=== PATIENT | female | born 1985 | race Caucasian/White ===

== ENCOUNTER 2021-01-04 19:29 | Emergency (ER) | payer OTHER, MEDICAID ==
[~2021-01-04] VITALS: Ht 168.9 cm; Wt 95.2 kg
--- NOTE | 2021-01-04 19:47 | ED Abdominal Pain ---
General Stated Complaint: PAIN UNDER RIGHT RIBS Source of Information: Patient Exam Limitations: No Limitations History of Present Illness Date Seen by Provider: January 04, 2021 Time Seen by Provider: 19:45 Initial Comments Left upper quadrant abdominal pain for 3 to 4 days. She is moving into a new house and initially thought she may have just pulled a muscle but this pain is worsened by coughing and deep breathing laughing and moving. She is not short of breath and does not have a cough but when she forces herself to cough that does make the pain worse. No fevers or chills. No fall or injury. Timing/Duration: 1-2 Days Severity/Quality: Cramping Radiation: No Radiation Activities at Onset: None Associated Symptoms: Nausea/Vomiting Allergies and Home Medications Allergies Coded Allergies: Sulfa (Sulfonamide Antibiotics) (Verified Allergy, Unknown, 01/04/21) Patient Home Medication List Home Medication List Reviewed: Yes Review of Systems Review of Systems Constitutional: see HPI EENTM: No Symptoms Reported Respiratory: No Symptoms Reported Cardiovascular: See HPI Gastrointestinal: See HPI, Abdominal Pain Genitourinary: No Symptoms Reported Musculoskeletal: no symptoms reported Skin: no symptoms reported Psychiatric/Neurological: No Symptoms Reported Endocrine: No Symptoms Reported Hematologic/Lymphatic: No Symptoms Reported Physical Exam Vital Signs Capillary Refill : Height/Weight/BMI Height: '" Weight: lbs. oz. kg; BMI Method: General Appearance: WD/WN, no apparent distress HEENT: PERRL/EOMI, normal ENT inspection Neck: non-tender, full range of motion Respiratory: no respiratory distress, no accessory muscle use Gastrointestinal: normal bowel sounds, soft, tenderness (Tender to palpation left upper quadrant) Extremities: normal range of motion, non-tender Neurologic/Psychiatric: alert, normal mood/affect, oriented x 3 Skin: normal color, warm/dry Progress/Results/Core Measures Results/Orders Lab Results Laboratory Tests Test 01/04/21 19:50 Range/Units White Blood Count 11.7 H 4.3-11.0 10^3/uL Red Blood Count 4.28 3.80-5.11 10^6/uL Hemoglobin 13.0 11.5-16.0 g/dL Hematocrit 38 35-52 % Mean Corpuscular Volume 90 80-99 fL Mean Corpuscular Hemoglobin 30 25-34 pg Mean Corpuscular Hemoglobin Concent 34 32-36 g/dL Red Cell Distribution Width 12.9 10.0-14.5 % Platelet Count 337 130-400 10^3/uL Mean Platelet Volume 9.6 9.0-12.2 fL Immature Granulocyte % (Auto) 1 % Neutrophils (%) (Auto) 70 42-75 % Lymphocytes (%) (Auto) 21 12-44 % Monocytes (%) (Auto) 6 0-12 % Eosinophils (%) (Auto) 2 0-10 % Basophils (%) (Auto) 1 0-10 % Neutrophils # (Auto) 8.2 H 1.8-7.8 10^3/uL Lymphocytes # (Auto) 2.5 1.0-4.0 10^3/uL Monocytes # (Auto) 0.7 0.0-1.0 10^3/uL Eosinophils # (Auto) 0.2 0.0-0.3 10^3/uL Basophils # (Auto) 0.1 0.0-0.1 10^3/uL Immature Granulocyte # (Auto) 0.1 0.0-0.1 10^3/uL Sodium Level 137 135-145 MMOL/L Potassium Level 3.7 3.6-5.0 MMOL/L Chloride Level 102 98-107 MMOL/L Carbon Dioxide Level 23 21-32 MMOL/L Anion Gap 12 5-14 MMOL/L Blood Urea Nitrogen 13 7-18 MG/DL Creatinine 1.05 0.60-1.30 MG/DL Estimat Glomerular Filtration Rate 60 BUN/Creatinine Ratio 12 Glucose Level 101 70-105 MG/DL Calcium Level 9.1 8.5-10.1 MG/DL Corrected Calcium 8.5-10.1 MG/DL Total Bilirubin 0.2 0.1-1.0 MG/DL Aspartate Amino Transf (AST/SGOT) 15 5-34 U/L Alanine Aminotransferase (ALT/SGPT) 16 0-55 U/L Alkaline Phosphatase 72 40-136 U/L C-Reactive Protein High Sensitivity 1.10 H 0.00-0.50 MG/DL Total Protein 7.9 6.4-8.2 GM/DL Albumin 4.6 H 3.2-4.5 GM/DL Serum Test, Qualitative NEGATIVE NEGATIVE My Orders Orders - MILLICENT HYMAN APRN Cbc With Automated Diff (01/04/21 19:43) Comprehensive Metabolic Panel (01/04/21 19:43) Hs C Reactive Protein (01/04/21 19:43) Hcg,Qualitative Serum (01/04/21 19:43) Ed Iv/Invasive Line Start (01/04/21 19:43) Ct Abdomen/Pelvis W (01/04/21 19:43) Iohexol Injection (Omnipaque 350 Mg/Ml 1 (01/04/21 20:00) Received Contrast (Hold Metformin- Contr (01/04/21 20:00) Ns (Ivpb) (Sodium Chloride 0.9% Ivpb Bag (01/04/21 20:00) Medications Given in ED Current Medications Medications Dose Ordered Sig/Samantha Route Start Time Stop Time Status Last Admin Dose Admin Iohexol 100 ml ONCE ONCE IV 01/04/21 20:00 01/04/21 20:01 DC 01/04/21 20:32 100 ML Sodium Chloride 100 ml ONCE ONCE IV 01/04/21 20:00 01/04/21 20:01 DC 01/04/21 20:32 80 ML Departure Impression Primary Impression: lower chest wall pain Disposition: HOME, SELF-CARE Condition: Stable Departure-Patient Inst. Decision time for Depature: 21:05 Referrals: FABIENNE LOWERY DO Patient Instructions: NO INSTRUCTIONS GIVEN Add. Discharge Instructions: 1. Follow-up with your doctor next week for recheck. Return to ER for any concerns. Tylenol and ibuprofen for pain control. Images Torso/Trunk 1 - Tenderness MILLICENT HYMAN APRN January 04, 2021 19:47
[2021-01-04] MEDS ORDERED: HOLD METFORMIN - RECEIVED CONTRAST 20 ML VIAL IV SCH (20:00)
[2021-01-04] MEDS ORDERED: NS 100 ML (IVPB) BAG IV ONE (20:00)
[2021-01-04] MEDS ORDERED: IOHEXOL 350 MG/ML 100 ML (OMNIPAQUE 350) VIAL IV ONE (20:00)
[2021-01-04 20:02] LABS: BASOPHILS # (AUTO) 0.1 10^3/uL (0.0-0.1); BASOPHILS % (AUTO) 1 % (0-10); EOSINOPHILS # (AUTO) 0.2 10^3/uL (0.0-0.3); EOSINOPHILS % (AUTO) 2 % (0-10); HEMATOCRIT 38 % (35-52); LYMPHOCYTES # (AUTO) 2.5 10^3/uL (1.0-4.0); LYMPHOCYTES % (AUTO) 21 % (12-44); MEAN CORPUSCULAR HEMOGLOBIN 30 pg (25-34); MEAN CORPUSCULAR HGB CONC 34 g/dL (32-36); MEAN CORPUSCULAR VOLUME 90 fL (80-99); MEAN PLATELET VOLUME 9.6 fL (9.0-12.2); MONOCYTES # (AUTO) 0.7 10^3/uL (0.0-1.0); MONOCYTES % (AUTO) 6 % (0-12); NEUTROPHILS # (AUTO) 8.2 10^3/uL (1.8-7.8); NEUTROPHILS % (AUTO) 70 % (42-75); PLATELET COUNT 337 10^3/uL (130-400); WHITE BLOOD COUNT 11.7 10^3/uL (4.3-11.0)
[2021-01-04 20:33] LABS: ALANINE AMINOTRANSFERASE 16 U/L (0-55); ALBUMIN 4.6 GM/DL (3.2-4.5); ALKALINE PHOSPHATASE 72 U/L (40-136); BILIRUBIN,TOTAL 0.2 MG/DL (0.1-1.0); BUN/CREATININE RATIO 12; CALCIUM 9.1 MG/DL (8.5-10.1); CARBON DIOXIDE 23 MMOL/L (21-32); CHLORIDE 102 MMOL/L (98-107); CREATININE SERUM 1.05 MG/DL (0.60-1.30); GFR ESTIMATED 60; GLUCOSE 101 MG/DL (70-105); POTASSIUM 3.7 MMOL/L (3.6-5.0); SODIUM 137 MMOL/L (135-145); TOTAL PROTEIN 7.9 GM/DL (6.4-8.2)
--- NOTE | 2021-01-04 21:00 | Diagnostic Imaging Report ---
PROCEDURE: CT abdomen and pelvis with contrast. TECHNIQUE: Multiple contiguous axial images were obtained through the abdomen and pelvis after administration of intravenous contrast. Auto Exposure Controls were utilized during the CT exam to meet ALARA standards for radiation dose reduction. All CT scans use one or more of the following dose optimizing techniques: automated exposure control, MA and/or KvP adjustment based on patient size and exam type or iterative reconstruction. INDICATION: Left upper quadrant abdominal pain. COMPARISON: None FINDINGS: Included portions of the lung bases are clear. CT ABDOMEN: Normal appendix is identified. Small bowel loops are nondistended. Kidneys, adrenal glands, spleen, pancreas, and liver have a normal CT appearance. There is no loculated fluid collection, free fluid or free air within the abdomen. No abnormal mesenteric or retroperitoneal adenopathy is seen. Osseous structures show no acute abnormalities. Fat-containing umbilical hernia is noted. Ostia measures 1.[address] PELVIS: Urinary bladder is grossly unremarkable. There is no loculated fluid collection, free fluid or free air within the pelvis. No abnormal adenopathy is seen. Osseous structures show no acute abnormalities. IMPRESSION: 1. Unremarkable CT of the abdomen and pelvis. Dictated by: Dictated on workstation # [id number]
[2021-01-04 21:16] VITALS: BP 97/82
== END 2021-01-04 21:16 | disposition home or self-care (01) ==
LOC: ER 19:34
DX: R07.89 Other chest pain (principal); Z88.2 Allergy status to sulfonamides
CPT/HCPCS: 36415; 74177; 80053; 84703; 85025; 86141

== ENCOUNTER 2022-12-22 15:26 | Emergency (ER) | payer OTHER, MEDICAID ==
[~2022-12-22] VITALS: Ht 167.7 cm; Wt 90.7 kg
[2022-12-22 15:30] VITALS: BP 121/75
--- NOTE | 2022-12-22 15:51 | ED Lower Extremity ---
General Chief Complaint: Lower Extremity Stated Complaint: KNEE PAIN Nursing Triage Note: PT AMB TO TRIAGE WITH COMPLAINT OF RIGHT KNEE PAIN. STATES STARTED OVER A WEEK AGO AND PAIN IS WORSENING. DENIES INJURY. Source: patient Exam Limitations: no limitations History of Present Illness Date Seen by Provider: Dec 22, 2022 Time Seen by Provider: 15:48 Initial Comments Patient is a 37-year-old female presents ED with right anterior knee pain. Pain is described as dull and for the most part constant over the past 2 weeks. Located to the anterior knee below the kneecap and does have some radiation to the posterior knee. Denies the right knee wanting to give out or popping. Denies of any specific injury. She has injured this knee when she was in the [employer]. She states she received physical therapy and did get some improvement. She has been dealing with intermittent pain of this right knee over the past several years. Denies any swelling, bruising or redness. Pain occurs with any type of bending, lifting or movement. Has been taking ibuprofen at home without much improvement. Denies calf pain, thigh pain, fever, chills, redness, warmth of the right knee Allergies and Home Medications Allergies Coded Allergies: Sulfa (Sulfonamide Antibiotics) (Verified Allergy, Unknown, 01/04/21) Patient Home Medication List Home Medication List Reviewed: Yes Hydrocodone/Acetaminophen (Hydrocodone-Acetamin 5-325 mg) 5 Mg-325 Mg Tablet, 1 TAB PO Q4H PRN for PAIN-MODERATE (5-7) Prescribed by: RON WELLINGTON on 12/22/22 0590 Review of Systems Constitutional: No chills, No diaphoresis EENTM: No blurred vision Respiratory: No cough, No dyspnea on exertion, No short of breath Cardiovascular: No chest pain Gastrointestinal: No abdominal pain, No diarrhea, No nausea, No vomiting Genitourinary: No decreased output, No discharge Musculoskeletal: joint pain; No joint swelling, No muscle pain, No muscle stiffness Skin: No change in color, No change in hair/nails All Other Systems Reviewed Negative Unless Noted: Yes Past Njzcgun-Fmchwh-Sjkfjw Hx Patient Social History Tobacco Use?: No Use of E-Cig and/or Vaping dev: Yes Substance use?: No Alcohol Use?: No Pt feels they are or have been: No Past Medical History Surgeries: Yes Gallbladder, Tubal Ligation Respiratory: No Cardiac: No Neurological: Yes Headaches /Migraines 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 oz. kg; 32.00 BMI Method: General Appearance: WD/WN, no apparent distress HEENT: PERRL/EOMI, normal ENT inspection, TMs normal, pharynx normal Neck: non-tender, full range of motion, supple Cardiovascular: regular rate, rhythm, no edema, no gallop, no JVD Respiratory: chest non-tender, lungs clear, normal breath sounds, no respiratory distress Gastrointestinal: normal bowel sounds, non tender, soft, no organomegaly Back: normal inspection, no CVA tenderness Knees: right knee pain, right knee soft tissue tenderness, right knee other (Pain with patella tracking. No crepitus with patella tracking. Negative anterior posterior drawer test. 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 No specific injury of the right knee. History of knee injury secondary to her time in the . Pain appears to be worse with any type of movement. She does have some discomfort with patella tracking without evidence of crepitus. No significant swelling or bruising. No laxity or pain with valgus or varus stress. Negative anterior posterior drawer test. Do not suspect ligament or meniscus injury. Concerning for potential patellofemoral syndrome secondary to location of pain as she states it is very anterior along the kneecap, quad and patella tendon. Disc ussed ice, anti-inflammatories stretching physical therapy. If she needs further imaging MRI would be necessary. Discussed talking with her primary care physician and to follow-up with orthopedic for further evaluation. Return precautions were discussed Impression Primary Impression: Knee pain Disposition: HOME, SELF-CARE Condition: Stable Departure-Patient Inst. Decision time for Depature: 16:27 Referrals: CHRISTIANNE MARTIN MD (PCP) Primary Care Physician JOAO VIRK MD Patient Instructions: Patellofemoral Pain Add. Discharge Instructions: Recommend brace for comfort. Pain medication as needed. Recommend physical therapy. Recommend follow-up with orthopedic in 1 to 2 weeks for further evaluation. All discharge instructions reviewed with patient and/or family. Voiced understanding. Scripts Hydrocodone/Acetaminophen (Hydrocodone-Acetamin 5-325 mg) 5 Mg-325 Mg Tablet 1 TAB PO Q4H PRN for PAIN-MODERATE (5-7), #8 TAB Prov: FUNMI DIAZ 12/22/22 FUNMI DIAZ Dec 22, 2022 15:50
--- NOTE | 2022-12-22 16:12 | Diagnostic Imaging Report ---
INDICATION: Right knee pain. EXAMINATION: AP, oblique and lateral views of the right knee were obtained. FINDINGS: No fracture or acute bony abnormality is seen. Joint spaces are unremarkable. IMPRESSION: Negative right knee. Dictated by: Dictated on workstation # [id number]
[2022-12-22] MEDS ORDERED: ACHD5005 PO (16:28)
== END 2022-12-22 16:57 | disposition home or self-care (01) ==
LOC: EDUNIT# 15:26 → ER 15:28
DX: M25.561 Pain in right knee (principal); Z87.828 Personal history of other (healed) physical injury and trauma
CPT/HCPCS: 73562

== ENCOUNTER 2023-07-21 16:21 | Emergency (ER) | payer OTHER ==
[~2023-07-21] VITALS: Ht 167 cm; Wt 90.7 kg
[~2023-07-21 16:21] MED LIST: ACHD5005 PO
--- NOTE | 2023-07-21 16:44 | ED Upper Extremity ---
General Chief Complaint: Upper Extremity Stated Complaint: INJ RIGHT HAND Source: patient Exam Limitations: no limitations History of Present Illness Date Seen by Provider: Jul 21, 2023 Time Seen by Provider: 16:20 Initial Comments Patient is a 38-year-old female who presents to the emergency room with a chief complaint of right hand injury after shutting it in a car door. Injury happened just prior to arrival. No open wounds. She has painful range of motion of the thumb, second and third finger. No numbness. No forearm pain, no elbow pain. [id number]-[id number] Onset: just prior to arrival Pain/Injury Location: right hand Method of Injury: direct blow Modifying Factors: Improves With Immobilization; Worse With Movement Allergies and Home Medications Allergies Coded Allergies: Sulfa (Sulfonamide Antibiotics) (Verified Allergy, Unknown, 01/04/21) Patient Home Medication List Home Medication List Reviewed: Yes Hydrocodone/Acetaminophen (Hydrocodone-Acetamin 5-325 mg) 5 Mg-325 Mg Tablet, 1 TAB PO Q4H PRN for PAIN-MODERATE (5-7) Prescribed by: RON WELLINGTON on 12/22/22 6229 Review of Systems Constitutional: see HPI Musculoskeletal: joint pain (Right hand) Past Lzarljz-Ghfewv-Qlrjuz Hx Patient Social History Tobacco Use?: No Use of E-Cig and/or Vaping dev: Yes E-Cig or Vaping type used: Nicotine Use of E-Cig and/or Vaping Justin: Current Everyday User Substance use?: No Alcohol Use?: No Pt feels they are or have been: No Past Medical History Surgery/Hospitalization HX: HYST, ADD Surgeries: Yes Gallbladder, Tubal Ligation Respiratory: No Cardiac: No Neurological: Yes Headaches /Migraines 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 oz. kg; 32.00 BMI Method: General Appearance: WD/WN, moderate distress (tearful, anxious) HEENT: PERRL/EOMI Cardiovascular: regular rate, rhythm Respiratory: no respiratory distress, no accessory muscle use Shoulder: normal inspection, non-tender, no evidence of injury, normal ROM Elbow/Forearm: normal inspection, non-tender, no evidence of injury, normal ROM, Right Wrist: Yes normal inspection, Yes normal ROM, Yes soft tissue tenderness (skin over the dorsal wrist - no edema, ecchymoses) Hand: Right, ecchymosis (mninmal bruising over the dorsum of the right hand at the 1st and 2nd metacarpal, mild swelling, TTP), limited ROM (thumb, 1st finger) Neurologic/Tendon: normal sensation Neurologic/Psychiatric: alert, oriented x 3, other (anxious and tearful) Skin: normal color, warm/dry Progress/Results/Core Measures Results/Orders My Orders Orders - MELE WATSON MD Hand, Right, 3 Views (07/21/23 16:44) Ibuprofen Tablet (Ibuprofen Tablet) (07/21/23 17:00) Medications Given in ED Current Medications Medications Dose Ordered Sig/Samantha Route Start Time Stop Time Status Last Admin Dose Admin Ibuprofen 600 mg ONCE ONCE PO 07/21/23 17:00 07/21/23 17:01 DC 07/21/23 17:06 600 MG Vital Signs/I&O 07/21/23 16:34 Temp 36.6 Pulse 112 Resp 18 B/P (MAP) 123/70 (87) Pulse Ox 100 Progress Progress Note : Time: 16:58 Progress Note Patient seen and examined by me. Evaluation today includes history and physical exam and three-view x-rays of the right hand. Patient's exam pertinent for mild swelling, ecchymosis and tenderness over the dorsum of the right hand first second and third metacarpals. No open wounds. Intact range of motion at the wrist and fingers. No numbness to the fingertips. Tender to palpation. Differential diagnosis contusion versus metacarpal fracture X-rays reviewed and interpreted by me. No obvious fractures or dislocations to the bones of the right hand. Compression with Zaki wrap applied, patient advised to take ibuprofen and use ice packs. Follow-up with primary care encouraged. Return precautions provided in both verbal and written format. All questions are sought and answered. Diagnostic Imaging Diagonstic Imaging: Xray Plain Films/CT/US/NM/MRI: hand Comments 3 views of the right hand reviewed and interpreted by me. No fractures, dislocations. Departure Impression Primary Impression: Contusion of right hand Qualified Codes: S60.221A - Contusion of right hand, initial encounter Disposition: 01 HOME, SELF-CARE Condition: Stable Departure-Patient Inst. Decision time for Depature: 16:41 Referrals: DIETER KATZ MD (PCP/Family) Primary Care Physician Patient Instructions: Contusion (DC) Add. Discharge Instructions: Keep the hand elevated to decrease swelling. An zaki wrap compression dressing may also help with discomfort. Over the counter ibuprofen 3 tablets with food every 6 hours as needed for pain. Ice packs to the affected area 20min at a time every 1-2 hours while awake for the next 24 hours. You can expect to have swelling and bruising for several days. Follow up with your primary care doctor for further. Return to the Emergency Department for any new, concerning or emergent complaints. MELE WATSON MD Jul 21, 2023 16:44
--- NOTE | 2023-07-21 16:58 | Diagnostic Imaging Report ---
INDICATION: Right hand injury with pain and swelling. COMPARISON: None. DISCUSSION: Three views of the right hand were obtained. No acute fracture, dislocation, or other osseous abnormality identified. No significant degenerative disease. Alignment is anatomic. Soft tissues are unremarkable. No foreign body. IMPRESSION: 1. Negative right hand. Dictated by: Dictated on workstation # [id number]
[2023-07-21] MEDS ORDERED: IBUPROFEN 600 MG TABLET PO ONE (17:00)
[2023-07-21 17:18] VITALS: BP 123/70
== END 2023-07-21 17:18 | disposition home or self-care (01) ==
LOC: EDUNIT# 16:21 → ER 16:24
DX: S60.221A Contusion of right hand, initial encounter (principal); F17.290 Nicotine dependence, other tobacco product, uncomplicated; W23.1XXA Caught, crushed, jammed, or pinched between stationary objects, initial encounter
CPT/HCPCS: 73130